=== PATIENT | female | born 1985 | race Asian ===

== ENCOUNTER → 2019-02-25 | Outpatient (CLI) | payer BC ==
--- NOTE | 2019-02-25 14:54 | RADIOLOGY REPORT (SQ) ---
EXAM DESCRIPTION: CT HEAD WITH COMPLETED DATE/TIME: 02/25/2019 2:21 pm REASON FOR STUDY: MIGRAINES (G43.909) J30.9 ALLERGIC RHINITIS, UNSPECIFIED G43.909 MIGRAINE, UNSP, NOT INTRACTABLE, WITHOUT STATUS MIGR COMPARISON: None. TECHNIQUE: Axial images acquired through the brain with intravenous contrast. Images reviewed with b one, brain and subdural windows. Additional sagittal and coronal reconstructions were generated. Tona ges stored on PACS. All CT scanners at this facility use dose modulation, iterative reconstruction, and/or weight based d osing when appropriate to reduce radiation dose to as low as reasonably achievable (ALARA). [facility]: Dose Right [facility]: CareDose [facility]: Dose Right [facility]: Teradose 4D [facility]: CHNL CONTRAST TYPE AND DOSE: contrast/concentration: Isovue 350.00 mg/ml; Total Contrast Delivered: 50.0 ml; Total Saline Delivered: 55.0 ml RENAL FUNCTION: None required. The patient is less than 50 years old. RADIATION DOSE: CT Rad equipment meets quality standard of care and radiation dose reduction techniq ues were employed. CTDIvol: 48.7 - 48.7 mGy. DLP: 1959 mGy-cm.. LIMITATIONS: None. FINDINGS: VENTRICLES: Normal size and contour. The cisterns are patent. CEREBRUM: No masses. No hemorrhage. No midline shift. Normal anton/white matter differentiation. No ev idence for acute infarction. No enhancing lesions. CEREBELLUM: No masses. No hemorrhage. No alteration of density. No evidence for acute infarction. No enhancing lesions. EXTRA-AXIAL SPACES: No fluid collections. No enhancing lesions. ORBITS AND GLOBE: No intra- or extraconal masses. Normal contour of globe without masses. CALVARIUM: No fracture. PARANASAL SINUSES: Fairly extensive, almost complete opacification of the right maxillary sinus with acute superimposed inflammatory changes. There is some enhancement of the mucosa on the post contra st images. Slight to mild mucosal thickening in the right ethmoid sinus. Soft tissue density occlud es the right maxillary infundibulum, probably on an inflammatory basis. Mild deviation of the nasal septum to the right of the midline. SOFT TISSUES: No mass or hematoma. OTHER: No other significant finding. IMPRESSION: 1. No acute intracranial abnormality. 2. Fairly extensive right maxillary sinus disease with acute superimposed inflammatory changes. Chr onic slight to very mild ethmoid sinus disease on the right. 3. Mild deviation of the nasal septum to the right of the midline. EVIDENCE OF ACUTE STROKE: NO. TECHNICAL DOCUMENTATION: JOB ID: [id number] Quality ID # [id number]: Final reports with documentation of one or more dose reduction techniques (e.g., Au tomated exposure control, adjustment of the mA and/or kV according to patient size, use of iterative reconstruction technique) 2010 [employer]- All Rights Reserved Reading location - IP/workstation name: [email or web address]
== END ==
LOC: RAD 09:47
PROVIDERS: ATTEND Nurse Practitioner Family
DX: J30.9 Allergic rhinitis, unspecified (principal); G43.909 Migraine, unspecified, not intractable, without status migrainosus; R06.02 Shortness of breath; J34.89 Other specified disorders of nose and nasal sinuses
CPT/HCPCS: 70460; 82565